=== PATIENT | female | born 1975 | race African-American/Black ===

== ENCOUNTER 2018-05-11 02:12 | Emergency (ER) | payer OTHER ==
[~2018-05-11] VITALS: Ht 165.1 cm; Wt 59.0 kg
[2018-05-11 02:22] VITALS: BP 138/86
[2018-05-11] MEDS ORDERED: ZOFRAN ODT ONE ×2 (02:29→04:05)
[2018-05-11] MEDS ORDERED: VALIUM IM STA (02:30)
[2018-05-11] MEDS ORDERED: ZOFRAN ODT SL STA (02:30)
[2018-05-11] MEDS ORDERED: LORA10TA3 PO (02:44)
[2018-05-11] MEDS ORDERED: AMLO10TA2 PO (02:44)
[2018-05-11] MEDS ORDERED: MELO15TA24 PO (02:44)
[2018-05-11] MEDS ORDERED: SENN-50 PO (02:44)
[2018-05-11] MEDS ORDERED: ESCI10TA PO (02:44)
[2018-05-11] MEDS ORDERED: DOCU100C28 PO (02:44)
--- NOTE | 2018-05-11 02:52 | NUR ---
UPDATE PT STATES "I FEEL A GOOD 60% BETTER SINCE YOU GAVE ME THAT NAUSEA PILL. I'M NOT HURTING NEAR BAD." PT RATES PAIN A 5-6 ON PAIN SCALE AT THIS TIME.
[2018-05-11 03:04] LABS: CALCIUM 9.5 mg/dL (8.4-10.5); CARBON DIOXIDE 19.6 mmol/L (20.0-32)
[2018-05-11 03:09] LABS: BASOPHIL % 0.5 % (0.0-0.2); EOSINOPHIL % 0.3 % (0.0-5.0); HEMOGLOBIN 12.8 g/dL (12.0-15.0); LYMPHOCYTES # 1.4 10^3/uL (1.0-4.8); LYMPHOCYTES % 19.4 % (24.0-44.0); MEAN CELL HGB 29.4 pg (26-34); MEAN CELL HGB CONCENTRATION 34.3 g/dL (33-37); MEAN CORP VOLUME 85.6 fL (78-100); MEAN PLATELET VOLUME 10.2 fL (7.8-11.0); MONOCYTES # 0.7 10^3/uL (0.3-0.8); MONOCYTES % 9.1 % (5.0-12.0); NEUTROPHIL # 5.2 10^3/uL (1.8-7.7); NEUTROPHILS % 70.4 % (41.0-85.0); WHITE BLOOD CELL 7.4 10^3/uL (4.5-11.0)
--- NOTE | 2018-05-11 03:09 | ER.PDOC ---
General Chief Complaint: Nausea,Vomiting,Diarrhea Stated Complaint: N/V/HYPERVENTILATION TRAVEL OUT OF US: No Time seen by MD: 03:05 Source: patient Exam Limitations: no limitations History of Present Illness Initial Comments Nausea/vomiting and body cramps after taking HIV medications. She normally takes Zofran but it is and so had nothing for nausea/vomiting. Severity: moderate Associated Symptoms: nausea/vomiting Allergies: Coded Allergies: ketorolac (Unverified Allergy, Unknown, ANAPHYLACTIC, SWELLING, 05/11/18) Home Meds Reported Medications Meloxicam (MELOXICAM) 15 Mg Tablet, 15 MG PO BID, TABLET 05/11/18 Escitalopram Oxalate (ESCITALOPRAM OXALATE) 10 Mg Tablet, 10 MG PO DAILY24, TABLET 05/11/18 Amlodipine Besylate (AMLODIPINE BESYLATE) 10 Mg Tablet, 10 MG PO DAILY24, TABLET 05/11/18 Sennosides/Docusate Sodium (GNP SENNA PLUS TABLET) 1 Each Tablet, 1 EACH PO BID , TABLET 05/11/18 Docusate Sodium (DOCUSATE SODIUM) 100 Mg Capsule, 100 MG PO BID, CAPSULE 05/11/18 Loratadine (LORATADINE) 10 Mg Tablet, 10 MG PO DAILY24, TABLET 05/11/18 Past Medical History Medical History: hypertension, other Surgical History: hysterectomy LMP (females 10-50): hysterectomy Social History Smoking: non-smoker Alcohol Use: none Drug Use: none Review of Systems Constitutional: no symptoms reported EENTM: no symptoms reported Respiratory: no symptoms reported Cardiovascular: no symptoms reported Gastrointestinal: see HPI Genitourinary: no symptoms reported All Other Systems: Reviewed and Negative Physical Exam General Appearance: No Apparent Distress, WD/WN EENT: eyes nml inspection Neck: Non-Tender, Full Range of Motion, Supple, Normal Inspection Respiratory: chest non-tender, lungs clear, normal breath sounds, no respiratory distress CVS: reg rate & rhythm, no murmur, no gallop, pulses nml Gastrointestinal: Normal Bowel Sounds, No Organomegaly, No Pulsatile Mass, Non Tender Back: Normal Inspection Extremities: Normal Range of Motion Neurologic/Psychiatric: chainer II-XII NML as Tested Skin: Normal Color Results/Orders Results/Orders Laboratory Tests Test 05/11/18 02:35 White Blood Count 7.4 10^3/uL (4.5-11.0) Red Blood Count 4.36 10^6/uL (4.00-5.20) Hemoglobin 12.8 g/dL (12.0-15.0) Hematocrit 37.3 % (36.0-46.0) Mean Corpuscular Volume 85.6 fL (78-100) Mean Corpuscular Hemoglobin 29.4 pg (26-34) Mean Corpuscular Hemoglobin Concent 34.3 g/dL (33-37) Red Cell Distribution Width 13.0 % (11.5-14.5) Platelet Count 378 10^3/uL (150-400) Mean Platelet Volume 10.2 fL (7.8-11.0) Neutrophils (%) (Auto) 70.4 % (41.0-85.0) Lymphocytes (%) (Auto) 19.4 % (24.0-44.0) Monocytes (%) (Auto) 9.1 % (5.0-12.0) Neutrophils # (Auto) 5.2 10^3/uL (1.8-7.7) Lymphocytes # (Auto) 1.4 10^3/uL (1.0-4.8) Monocytes # (Auto) 0.7 10^3/uL (0.3-0.8) Absolute Immature Granulocyte (auto 0.02 10^3 u/L (0-2) Eosinophils % 0.3 % (0.0-5.0) Basophils % 0.5 % (0.0-0.2) Basophils # 0.0 10^3/uL (0.0-0.1) Eosinophil Count 0.0 10^3/uL (0.0-0.2) Sodium Level 139 mmol/L (132-145) Potassium Level 3.2 mmol/L (3.6-5.2) Chloride Level 100.0 mmol/L (96-109) Carbon Dioxide Level 19.6 mmol/L (20.0-32) Anion Gap 22.6 Blood Urea Nitrogen 9 mg/dL (7-18) Creatinine 1.04 mg/dL (0.59-1.40) Estimated GFR () 70.3 (>/=60) BUN/Creatinine Ratio 8.0 Glucose Level 117 mg/dL (70-110) Calcium Level 9.5 mg/dL (8.4-10.5) Total Bilirubin 0.9 mg/dL (0.2-1.0) Aspartate Amino Transf (AST/SGOT) 24 U/L (0-35) Alanine Aminotransferase (ALT/SGPT) 31 U/L (12-78) Alkaline Phosphatase 50 U/L (50-136) Total Protein 8.1 g/dL (6.4-8.2) Albumin 4.3 g/dL (3.4-5.0) Globulin 3.8 Percent Immature Gran (Cell Imm) 0.30 % (0.00-0.50) Administered Medications Medications (Trade) Dose Ordered Sig/Zina Route PRN Reason Start Time Stop Time Status Last Admin Dose Admin Diazepam (Valium) 5 mg STAT STAT IM 05/11/18 02:30 05/11/18 02:32 DC 05/11/18 02:51 Ondansetron HCl (Zofran Odt) 4 mg STAT STAT SL 05/11/18 02:30 05/11/18 02:32 DC 05/11/18 02:35 Progress Progress Patient feeling better. Departure Time of Disposition: 03:39 Disposition: 01 HOME, SELF-CARE Impression: Primary Impression: Nausea & vomiting Qualified Codes: R11.2 - Nausea with vomiting, unspecified Additional Impression: Muscle cramps Condition: Improved Referrals: PCP,UNKNOWN (PCP) PRIMARY CARE PROVIDER Additional Instructions: Zofran F/U with your PCP in 2-3 days Duration or Time Spent with Pa: 60 mins PUNEET HPILLIPS MD May 11, 2018 03:09
--- NOTE | 2018-05-11 03:18 | NUR ---
UPDATE PT STATES NO PAIN AT THIS TIME RATING IT 0 ON 0-10 SCALE. STATES "I FEEL PERFECT NOW, SO MUCH BETTER."
--- NOTE | 2018-05-11 04:06 | NUR ---
ZOFRAN ZOFRAN 4MG ODT PER VERBAL ORDER GIVEN AT THIS TIME FOR PT.
[2018-05-11 04:26] VITALS: BP 138/86
== END 2018-05-11 04:12 | disposition home or self-care (01) ==
LOC: ER 02:12
DX: R11.2 Nausea with vomiting, unspecified (principal); R25.2 Cramp and spasm; I10 Essential (primary) hypertension; Z90.710 Acquired absence of both cervix and uterus; Z79.899 Other long term (current) drug therapy
CPT/HCPCS: 36415; 80053; 85025; 96372; 99284; Q0162 ×2